=== PATIENT | female | born 1975 | race Caucasian/White ===

== ENCOUNTER 2016-11-23 15:50 | Emergency (ER) | payer MEDICAID ==
[~2016-11-23] VITALS: Ht 154.9 cm; Wt 70.8 kg
[~2016-11-23 15:50] MED LIST: CHOL20001 PO
[2016-11-23 16:17] VITALS: BP 129/79
--- NOTE | 2016-11-23 17:07 | NUR ---
PATIENT TO ER BED 1.
[2016-11-23] MEDS ORDERED: KETOROLAC 60 MG/2 ML VIAL IM ONE (17:10)
[2016-11-23] MEDS ORDERED: ONDANSETRON 4 MG ODT PO ONE (17:10)
[2016-11-23] MEDS ORDERED: CARISOPRODOL 350 MG TAB PO ONE (17:10)
[2016-11-23] MEDS ORDERED: DEXAMETHASONE 10 MG/ML VIAL IM ONE (17:10)
--- NOTE | 2016-11-23 17:10 | NUR ---
Patient being evaluated by physician at bedside.
--- NOTE | 2016-11-23 17:14 | NUR ---
PATIENT PRESENTS TO ED WITH PT C/O RIGHT FLANK PAIN 10/10. DENIES N/V/D; SKIN IS PINK/WARM/DRY; AAOX4 WITH EVEN AND STEADY GAIT; LUNGS CLEAR BL; HR EVEN AND REGULAR; PT DENIES ANY FEVER, CP, SOB, OR COUGH AT THIS TIME; PATIENT STATES PAIN OF 10/10 AT THIS TIME; VSS; PATIENT POSITIONED FOR COMFORT; HOB ELEVATED; BEDRAILS UP X2; BED DOWN. ER MD MADE AWARE OF PT STATUS.
[2016-11-23 18:00] VITALS: BP 122/76
--- NOTE | 2016-11-23 18:00 | NUR ---
Patient discharged with v/s stable. Written and verbal after care instructions given and explained. Patient alert, oriented and verbalized understanding of instructions. Ambulatory with steady gait. All questions addressed prior to discharge. ID band removed. Patient advised to follow up with PMD. Rx of MEDROL DOSE PACK AND MOTRIN AND NORCO 5-325MG given. Patient educated on indication of medication including possible reaction and side effects. Opportunity to ask questions provided and answered.
== END 2016-11-23 18:00 | disposition home or self-care (01) ==
LOC: MED 15:50
DX: M54.41 Lumbago with sciatica, right side (principal); Z88.5 Allergy status to narcotic agent; Z88.6 Allergy status to analgesic agent
CPT/HCPCS: 96372; 99284; J1100; J1885; S0119

== ENCOUNTER 2016-12-10 11:46 | Emergency (ER) | payer MEDICAID ==
[~2016-12-10] VITALS: Ht 154.9 cm; Wt 68.0 kg
[2016-12-10 11:52] VITALS: BP 145/97
--- NOTE | 2016-12-10 11:57 | NUR ---
Patient ambulated to bed 8. RN evaluating patient at bedside.
--- NOTE | 2016-12-10 12:04 | NUR ---
PT PRESENTS TO ER W/C/O LBP THAT RADIATES DOWN RIGHT LEG SINCE THIS AM.PAIN SCALE OF 10/10; HX SCIATICA.PT STATES SHE HAD FEVER LAST NIGHT;TOOK IBUPROFEN BUT DIDN'T HELP PT;PT IS AAOX4;NO ACUTE DISTRESS NOTED AT THIS TIME;DENIES CP/SOB/COUGH/N/V/D.SKIN IS INTACT,WARM AND DRY;HOB ELEVATED;POSITION FOR COMFORT;NEEDS ATTENDED;SAFETY PRECAUTION INSTITUTED;MD MADE AWARE OF PT'S CONDITION.
--- NOTE | 2016-12-10 12:13 | NUR ---
DR MATT AT BEDSIDE
[2016-12-10] MEDS ORDERED: fentaNYL 0.05 MG/ML VIAL IM ONE (12:20)
--- NOTE | 2016-12-10 12:55 | NUR ---
FENTANYL .5ML WAS WASTED AT [facility] WASTE BIN.
--- NOTE | 2016-12-10 13:00 | NUR ---
Patient discharged with v/s stable. Written and verbal after care instructions given and explained. Patient alert, oriented and verbalized understanding of instructions. Ambulatory with steady gait. All questions addressed prior to discharge. ID band removed. Patient advised to follow up with PMD. Rx of MOTRIN AND TRAMADOL given. Patient educated on indication of medication including possible reaction and side effects. Opportunity to ask questions provided and answered.
[2016-12-10 13:03] VITALS: BP 126/87
== END 2016-12-10 13:00 | disposition home or self-care (01) ==
LOC: MED 11:46
PROC: 3E033GC Introduction of Other Therapeutic Substance into Peripheral Vein, Percutaneous Approach (ICD-10-PCS; principal; 2016-12-10)
DX: M54.41 Lumbago with sciatica, right side (principal); R03.0 Elevated blood-pressure reading, without diagnosis of hypertension; Z88.6 Allergy status to analgesic agent
CPT/HCPCS: 96372; 99283; J3010

== ENCOUNTER 2020-12-09 11:35 | Emergency (ER) | payer MEDICAID, OTHER ==
[~2020-12-09] VITALS: Ht 157.5 cm; Wt 59.0 kg
[2020-12-09 11:50] VITALS: BP 135/76
--- NOTE | 2020-12-09 13:19 | NUR ---
Pt ambulated to bed 8.
--- NOTE | 2020-12-09 13:25 | NUR ---
45 Y/O FEMALE BIB SELF C/O BILAT WRIST PAIN X TODAT. PT STATES WHILE AT WORK TODAY, A LARGE AND HEAVY PALLET FELL ON TOP OF HER, SHE ATTEMPTED TO STOP PALLET FROM FALLING WITH HER ARMS BUT IT HIT HER CHEST. LIMITED ROM, RADIAL PULSES PRESENT, SKIN INTACT, NORMAL COLOR, NORMAL TEMP, SENSATION INTACT, <3 SECS CAP REFILL. AO4, BREATHING EVEN AND UNLABORED, SKIN WARM AND DRY. BED IN LOWEST POSITION, LOCKED, X1 SIDERAIL UP. PMHX - DENIED ALLERGIES - ACETAMINOPHEN, NORCO
[2020-12-09] MEDS ORDERED: KETOROLAC 30 MG/ML VIAL IM ONE (13:45)
[2020-12-09] MEDS ORDERED: IBUP-1842 PO (14:35)
--- NOTE | 2020-12-09 14:50 | NUR ---
applied wrist splint to left hand without any issues
[2020-12-09 14:58] VITALS: BP 135/76
--- NOTE | 2020-12-09 14:59 | NUR ---
Patient discharged with v/s stable. Written and verbal after care instructions ABOUT MUSCLE STRAIN AND WRSIT SPRAIN REHAB given and explained. Patient alert, oriented and verbalized understanding of instructions. Ambulatory with steady gait. All questions addressed prior to discharge. ID band removed. Patient advised to follow up with PMD. Rx of IBUPROFEN given. Patient educated on indication of medication including possible reaction and side effects. Opportunity to ask questions provided and answered.
== END 2020-12-09 14:59 | disposition home or self-care (01) ==
LOC: MED 11:35
DX: S20.219A Contusion of unspecified front wall of thorax, initial encounter (principal); S63.501A Unspecified sprain of right wrist, initial encounter; S63.502A Unspecified sprain of left wrist, initial encounter; J45.909 Unspecified asthma, uncomplicated; Z88.5 Allergy status to narcotic agent; Z88.6 Allergy status to analgesic agent; Z79.899 Other long term (current) drug therapy; Z98.890 Other specified postprocedural states; W20.8XXA Other cause of strike by thrown, projected or falling object, initial encounter; Y93.89 Activity, other specified; Y92.89 Other specified places as the place of occurrence of the external cause; Y99.8 Other external cause status
CPT/HCPCS: 29125; 71111; 73110; 96372; 99284; J1885

== ENCOUNTER 2020-12-18 16:36 | Emergency (ER) | payer MEDICAID, OTHER ==
[~2020-12-18] VITALS: Ht 154.9 cm; Wt 72.6 kg
[~2020-12-18 16:36] MED LIST changes: +IBUP-1842 PO
[2020-12-18 16:41] VITALS: BP 145/86
--- NOTE | 2020-12-18 16:59 | NUR ---
To ED bed 02
[2020-12-18] MEDS ORDERED: KETOROLAC 30 MG/ML VIAL ONE (17:04)
[2020-12-18] MEDS ORDERED: KETOROLAC 30 MG/ML VIAL IM ONE (17:05)
--- NOTE | 2020-12-18 17:13 | NUR ---
Dr. Bass with pt for MSE
[2020-12-18] MEDS ORDERED: NAPR-54 PO (17:14)
--- NOTE | 2020-12-18 17:14 | NUR ---
see complete assessment.
--- NOTE | 2020-12-18 17:26 | NUR ---
d/c with VSS. d/c education given. opportunity to ask questions given and answered. rx of naprosyn given
== END 2020-12-18 17:26 | disposition home or self-care (01) ==
LOC: MED 16:36
DX: S46.911A Strain of unspecified muscle, fascia and tendon at shoulder and upper arm level, right arm, initial encounter (principal); R73.03 Prediabetes; J45.909 Unspecified asthma, uncomplicated; W22.8XXA Striking against or struck by other objects, initial encounter; Y93.89 Activity, other specified; Y92.89 Other specified places as the place of occurrence of the external cause; Y99.8 Other external cause status
CPT/HCPCS: 96372; 99283; J1885

== ENCOUNTER 2021-01-04 13:02 | Emergency (ER) | payer MEDICAID ==
[~2021-01-04] VITALS: Ht 154.9 cm; Wt 72.6 kg
[~2021-01-04 13:02] MED LIST changes: +NAPR-54 PO
[2021-01-04 13:12] VITALS: BP 125/93
--- NOTE | 2021-01-04 13:16 | NUR ---
PT TAKEN TO ER LOBBY.
--- NOTE | 2021-01-04 13:29 | NUR ---
Patient ambulated to bed 4. RN evaluating the patient at bedside.
--- NOTE | 2021-01-04 13:36 | NUR ---
45 Y/O FEMALE C/O CHEST PAIN 10/10 DESCRIBES PRESSURE RADIATES TO LEFT SHOULDER. PT STATES SHE HAS BEEN SEEN FOR SIMILAR SYMPTOMS ON PREVIOUS VISITS. PT STATES SHE WAS INJURED 12/07/20 AT WORK AND IS PENDING WORKERS COMP. PT STATES SHE IS HAVING TROUBLE WORKING AND REQUETING WORK NOTE. PT ALSO STATES PAIN TO RLQ 5/10 DESCRIBES BURNING. PT DENIES N/V, DENIES FEVER/CHILLS. PMH: HTN ALLERGIES: NORCO
--- NOTE | 2021-01-04 13:42 | NUR ---
ZOLTAN Dwyer at pt bedside for further evaluation.
[2021-01-04] MEDS ORDERED: KETOROLAC 30 MG/ML VIAL IM ONE (13:50)
[2021-01-04] MEDS ORDERED: TRAM50TA3 PO (13:52)
[2021-01-04 14:15] VITALS: BP 125/93
--- NOTE | 2021-01-04 14:15 | NUR ---
Patient discharged with v/s stable. Written and verbal after care instructions given and explained. Patient alert, oriented and verbalized understanding of instructions. Ambulatory with steady gait. All questions addressed prior to discharge. ID band removed. Patient advised to follow up with PMD. Rx of tramadol 50mg tid po prn pain given. Patient educated on indication of medication including possible reaction and side effects. Opportunity to ask questions provided and answered.
== END 2021-01-04 14:17 | disposition home or self-care (01) ==
LOC: MED 13:02
DX: M25.511 Pain in right shoulder (principal); M25.512 Pain in left shoulder; R07.89 Other chest pain; J45.909 Unspecified asthma, uncomplicated; R73.03 Prediabetes; X58.XXXA Exposure to other specified factors, initial encounter; Y93.89 Activity, other specified; Y92.89 Other specified places as the place of occurrence of the external cause; Y99.8 Other external cause status
CPT/HCPCS: 81002; 81025; 93005; 96372; 99283; J1885

== ENCOUNTER 2021-01-04 19:06 | Emergency (ER) | payer MEDICAID ==
[~2021-01-04] VITALS: Ht 154.9 cm; Wt 77.1 kg
[~2021-01-04 19:06] MED LIST changes: +TRAM50TA3 PO
[2021-01-04 19:24] VITALS: BP 134/87
--- NOTE | 2021-01-04 19:24 | NUR ---
TO BED AMBULATORY
--- NOTE | 2021-01-04 20:24 | NUR ---
PT AMBULATORY TO RESTROOM.
--- NOTE | 2021-01-04 20:38 | NUR ---
PT LEFT WITHOUT BEING SEEN.
--- NOTE | 2021-01-04 20:38 | NUR ---
PATIENT LEFT WITHOUT BEING SEEN BY DR. ANGULO. NO FURTHER CARE PROVIDED FOR PATIENT.
[2021-01-04 20:40] VITALS: BP 134/87
== END 2021-01-04 20:38 | disposition left against medical advice (07) ==
LOC: MED 19:06
DX: Z48.00 Encounter for change or removal of nonsurgical wound dressing (principal); Z53.21 Procedure and treatment not carried out due to patient leaving prior to being seen by health care provider

== ENCOUNTER 2022-03-07 11:21 | Emergency (ER) | payer MEDICAID ==
[~2022-03-07] VITALS: Ht 154.9 cm; Wt 74.8 kg
[~2022-03-07 11:21] MED LIST changes: -CHOL20001 PO; +CHOL200047 PO
[2022-03-07 11:36] VITALS: BP 123/90
--- NOTE | 2022-03-07 11:45 | NUR ---
46YR OLD FEMALE BIB SELF C/O ABD PAIN CARLIN X1 DAY . STATES N/V. PAIN LEVEL 8/10. DENIES CP SOB . PT IS COLOMBIAN SPEAKING ONLY. 22G IV CATH PLACED IN L AC . PT A&OX4. NKDA NO MED HX
[2022-03-07] MEDS ORDERED: ONDANSETRON 4 MG/2 ML VIAL IVP ONE (12:05)
[2022-03-07] MEDS ORDERED: KETOROLAC 15 MG/ML VIAL IVP ONE (12:05)
[2022-03-07 12:34] LABS: BASOPHILS % (AUTO) 0.4 % (0.0-2.0); EOSINOPHILS # (AUTO) 0.1 K/uL (0-0.4); EOSINOPHILS % (AUTO) 1.2 % (0.0-4.0); HEMATOCRIT 41.8 % (36-48); HEMOGLOBIN 13.6 g/dL (12.0-16.0); LYMPHOCYTES % (AUTO) 20.2 % (20.5-51.1); MEAN CORPUSCULAR HEMOGLOBIN 26 pg (27-31); MEAN CORPUSCULAR HGB CONC 33 g/dL (33-37); MEAN CORPUSCULAR VOLUME 81.2 fL (80-94); MONOCYTES # (AUTO) 0.7 K/uL (0.8-1.0); MONOCYTES % (AUTO) 6.9 % (1.7-9.3); NEUTROPHILS # (AUTO) 7.2 K/uL (1.8-7.7); NEUTROPHILS % (AUTO) 71.3 % (42.2-75.2); PLATELET COUNT (AUTO) 342 K/uL (140-450); RED BLOOD CELL COUNT(AUTO) 5.15 MIL/uL (4.20-5.40); RED CELL DISTRIBUTION WIDTH 22.4 % (11.6-13.7); WHITE BLOOD COUNT (AUTO) 10.1 K/uL (4.8-10.8)
--- NOTE | 2022-03-07 12:38 | NUR ---
XRAY AT BEDSIDE
--- NOTE | 2022-03-07 12:39 | NUR ---
22G IV CATH PLACED L AC
[2022-03-07 13:01] LABS: ALBUMIN 3.8 g/dL (3.4-5.0); ANION GAP 10.4 (8-16); CREATININE 0.9 mg/dL (0.6-1.3); POTASSIUM 4.4 mmol/L (3.5-5.1); TOTAL BILIRUBIN 0.5 mg/dL (0.0-1.0)
[2022-03-07] MEDS ORDERED: DEXAMETHASONE 10 MG/ML VIAL IVP ONE (13:25)
[2022-03-07] MEDS ORDERED: METOCLOPRAMIDE 10 MG/2 ML INJ VIAL IVP ONE (13:25)
[2022-03-07] MEDS ORDERED: diphenhydrAMINE 50 MG/ML VIAL IVP ONE (13:25)
[2022-03-07 13:52] LABS: APPEARANCE,URINE CLEAR (CLEAR); BILIRUBIN,URINE NEGATIVE (NEGATIVE); BLOOD, URINE NEGATIVE (NEGATIVE); COLOR,URINE YELLOW (YELLOW); LEUKOCYTE ESTERASE ,URINE NEGATIVE (NEGATIVE); NITRITE, URINE NEGATIVE (NEGATIVE); UGLUCOSE NEGATIVE (NEGATIVE)
[2022-03-07] MEDS ORDERED: ACET-9234 PO (14:13)
[2022-03-07] MEDS ORDERED: FAMO-90 PO (14:14)
[2022-03-07] MEDS ORDERED: BEN10 PO (14:14)
--- NOTE | 2022-03-07 14:15 | NUR ---
IVP MEDS GIVEN-NADR AT THIS TIME
[2022-03-07] MEDS ORDERED: ONDA-188 SL (14:17)
[2022-03-07 15:04] VITALS: BP 106/64
--- NOTE | 2022-03-07 15:04 | NUR ---
Patient discharged with v/s stable. Written and verbal after care instructions given and explained. Patient alert, oriented and verbalized understanding of instructions. Ambulatory with steady gait. All questions addressed prior to discharge. ID band removed. Patient advised to follow up with PMD. Rx of ACETAMINOPHEN BENTYL PEPDID ZOFRAN given. Patient educated on indication of medication including possible reaction and side effects. Opportunity to ask questions provided and answered.
--- NOTE | 2022-03-07 15:05 | NUR ---
Chart checked and completed. The patient's care was reviewed and supervised by Hortensia Pereyra RN.
== END 2022-03-07 15:04 | disposition home or self-care (01) ==
LOC: MED 11:21
DX: A08.4 Viral intestinal infection, unspecified (principal); I10 Essential (primary) hypertension; G43.909 Migraine, unspecified, not intractable, without status migrainosus; J45.909 Unspecified asthma, uncomplicated; E11.9 Type 2 diabetes mellitus without complications; Z90.710 Acquired absence of both cervix and uterus; Z98.890 Other specified postprocedural states; Z79.899 Other long term (current) drug therapy; Z79.891 Long term (current) use of opiate analgesic; Z79.1 Long term (current) use of non-steroidal anti-inflammatories (NSAID); Z88.5 Allergy status to narcotic agent; Z88.8 Allergy status to other drugs, medicaments and biological substances
CPT/HCPCS: 36415; 71045; 80053; 81003; 81025; 83690; 84484; 85025; 93005; 96374; 96375; 99285; J1100; J1200; J1885; J2405; J2765; Q0092

== ENCOUNTER 2022-06-06 19:59 | Emergency (ER) | payer MEDICAID ==
[~2022-06-06] VITALS: Ht 154.9 cm; Wt 76.2 kg
[~2022-06-06 19:59] MED LIST changes: +ACET-9234 PO; +BEN10 PO; +FAMO-90 PO; +ONDA-188 SL
[2022-06-06 20:29] VITALS: BP 122/76
--- NOTE | 2022-06-06 21:48 | NUR ---
Patient ambulated to bed 8.
--- NOTE | 2022-06-06 22:00 | NUR ---
46/F BIB SELF C/C RIGHT ARM TO MIDBACK PAIN X1DAY. PER PATIENT PAIN IS 8/10 AND FEELS LIKE "PRESSURE". +NUMBNESS AND TINGLING ON LIPS AND TONGUE XTODAY AM. PATIENT REPORTS SHE IS CURRENTLY SEEING NEURO DUE C/O HEADACHE AND BLURRY VISION, NEXT APPT JUL. . PATIENT IS AAOX4 AND AMBULATORY. DENIES SOB/CP/N/V/D/C AT THIS TIME. PATIENT PLACED IN BED AND MONITOR. GUARDING ARM. 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
--- NOTE | 2022-06-06 22:14 | NUR ---
Patient being evaluated by physician at bedside.
[2022-06-06] MEDS ORDERED: IBUPROFEN 600 MG TAB PO ONE (22:25)
[2022-06-06] MEDS ORDERED: LIDOCAINE 5% 1 EA PATCH TP SCH (22:25)
--- NOTE | 2022-06-06 22:42 | NUR ---
PATIENT MEDICATED PER ORDERS. TOLERATED WELL.
--- NOTE | 2022-06-07 | NUR ---
ERIC DENIES PAIN AT THIS TIME. 0. STATED THAT THE PATCH AND MED TOOK PAIN AWAY
[2022-06-07] MEDS ORDERED: LID5T TP (00:10)
[2022-06-07 00:30] VITALS: BP 122/76
--- NOTE | 2022-06-07 00:30 | NUR ---
Chart checked and completed.
--- NOTE | 2022-06-07 00:30 | NUR ---
Patient discharged with v/s stable. Written and verbal after care instructions given PARESTHESIA and explained. Patient alert, oriented and verbalized understanding of instructions. Ambulatory with steady gait. All questions addressed prior to discharge. ID band removed. Patient advised to follow up with PMD. Rx of LIDOCAINE HYD PATCH given.
== END 2022-06-07 00:30 | disposition home or self-care (01) ==
LOC: MED 19:59
DX: S46.911A Strain of unspecified muscle, fascia and tendon at shoulder and upper arm level, right arm, initial encounter (principal); R20.2 Paresthesia of skin; J45.909 Unspecified asthma, uncomplicated; I10 Essential (primary) hypertension; E11.9 Type 2 diabetes mellitus without complications; Z79.899 Other long term (current) drug therapy; Z79.1 Long term (current) use of non-steroidal anti-inflammatories (NSAID); Z79.891 Long term (current) use of opiate analgesic; Z88.5 Allergy status to narcotic agent; Z88.8 Allergy status to other drugs, medicaments and biological substances; X58.XXXA Exposure to other specified factors, initial encounter; Y92.89 Other specified places as the place of occurrence of the external cause; Y93.89 Activity, other specified; Y99.8 Other external cause status
CPT/HCPCS: 93005; 99283

== ENCOUNTER 2022-10-01 10:40 | Emergency (ER) | payer MEDICAID ==
[~2022-10-01] VITALS: Ht 152.4 cm; Wt 71.2 kg
[~2022-10-01 10:40] MED LIST changes: +LID5T TP
[2022-10-01 10:49] VITALS: BP 127/92
--- NOTE | 2022-10-01 10:51 | NUR ---
47/F WALKED IN C/O RIGHT SIDED BACK PAIN RADIATING TO RIGHT SHOULDER ONSET TODAY. DENIES ANY FALL OR INJURY. REPORTS CONSTANT 8/10 PAIN. DENIES ANY MED. AAO4, AMBULATORY, VITALS STABLE, NO ACUTE DISTRESS NOTED PMH: DENIES
--- NOTE | 2022-10-01 10:51 | NUR ---
PT AMBULATED TO LOBBY
[2022-10-01] MEDS ORDERED: KETOROLAC 30 MG/ML VIAL IM ONE (11:55)
[2022-10-01] MEDS ORDERED: AMOX-1230 PO (13:17)
[2022-10-01] MEDS ORDERED: NAPR-1704 PO (13:17)
[2022-10-01 14:00] VITALS: BP 131/89
[2022-10-01 14:50] LABS: APPEARANCE,URINE CLEAR (CLEAR); BILIRUBIN,URINE NEGATIVE (NEGATIVE); BLOOD, URINE 1+ (NEGATIVE); COLOR,URINE YELLOW (YELLOW); LEUKOCYTE ESTERASE ,URINE NEGATIVE (NEGATIVE); NITRITE, URINE NEGATIVE (NEGATIVE); UGLUCOSE NEGATIVE (NEGATIVE)
[2022-10-01] MEDS ORDERED: LID5T TP (15:17)
[2022-10-01 15:43] LABS: TRICHOMONAS,URINE None Seen /HPF (None Seen); WBC,URINE 0-5 /HPF (0-5); YEAST,URINE None Seen /HPF (None Seen)
== END 2022-10-01 15:30 | disposition home or self-care (01) ==
LOC: MED 10:40
DX: M62.830 Muscle spasm of back (principal); J45.909 Unspecified asthma, uncomplicated; I10 Essential (primary) hypertension; Z88.5 Allergy status to narcotic agent; Z88.6 Allergy status to analgesic agent; Z79.899 Other long term (current) drug therapy
CPT/HCPCS: 71045; 81001; 96372; 99284; J1885

== ENCOUNTER 2022-10-26 15:17 | Emergency (ER) | payer MEDICAID ==
[~2022-10-26] VITALS: Ht 154.9 cm; Wt 77.6 kg
[~2022-10-26 15:17] MED LIST changes: +NAPR-1704 PO
[2022-10-26 15:38] VITALS: BP 150/95
--- NOTE | 2022-10-26 15:50 | NUR ---
47/F PRESENTS TO ED WITH C/O POSSIBLE ALLERGIC REACTION PRIMARILY TO FACE X1 WEEK. STATES REDNESS AND SWELLING BUT UNSURE OF TRIGGER, TOOK OTC ALLERGY MEDS WITH NO RELIEF. DENIES SOB, CP, SPEAKING IN FULL CLEAR SENTENCE, REDNESS NOTED AROUND MOUTH AREA.
[2022-10-26] MEDS ORDERED: CEPH-588 PO (16:12)
[2022-10-26] MEDS ORDERED: HYD1C TP (16:12)
--- NOTE | 2022-10-26 16:16 | NUR ---
Patient discharged with v/s stable. Written and verbal after care instructions ABOUT RASH, CELLULITIS given and explained. Patient alert, oriented and verbalized understanding of instructions. Ambulatory with steady gait. All questions addressed prior to discharge. ID band removed. Patient advised to follow up with PMD. Rx of KEFLEX AND HYDROCORTISONE given. Patient educated on indication of medication including possible reaction and side effects. Opportunity to ask questions provided and answered.
== END 2022-10-26 16:16 | disposition home or self-care (01) ==
LOC: MED 15:17
DX: L30.9 Dermatitis, unspecified (principal); J45.909 Unspecified asthma, uncomplicated; I10 Essential (primary) hypertension; Z79.899 Other long term (current) drug therapy; Z88.5 Allergy status to narcotic agent
CPT/HCPCS: 99283

== ENCOUNTER 2022-11-30 14:53 | Emergency (ER) | payer MEDICAID ==
[~2022-11-30] VITALS: Ht 152.4 cm; Wt 75.7 kg
[~2022-11-30 14:53] MED LIST changes: +CEPH-588 PO; +HYD1C TP
[2022-11-30 15:48] VITALS: BP 126/65
[2022-11-30] MEDS ORDERED: PROM118S5 PO (16:27)
[2022-11-30] MEDS ORDERED: LIDO15SO PO (16:27)
[2022-11-30] MEDS ORDERED: IBUP-2213 PO (16:27)
--- NOTE | 2022-11-30 17:05 | NUR ---
Patient discharged with v/s stable. Written and verbal after care instructions given. Patient alert, oriented and verbalized understanding of instructions. Ambulatory with steady gait. All questions addressed prior to discharge. ID band removed. Patient advised to follow up with PMD. Rx of IBUPROFEN, LIDOCAINE AND PROMETHAZINE-DM SYRUP given. Opportunity to ask questions provided and answered. WORK NOTE HANDED TO PATIENT.
--- NOTE | 2022-11-30 17:06 | NUR ---
The patient's care was reviewed and supervised by Karon Mcintosh, RN, RN.
== END 2022-11-30 17:05 | disposition home or self-care (01) ==
LOC: MED 14:53
DX: J04.0 Acute laryngitis (principal); J45.909 Unspecified asthma, uncomplicated; E11.9 Type 2 diabetes mellitus without complications; I10 Essential (primary) hypertension; Z79.899 Other long term (current) drug therapy; Z79.1 Long term (current) use of non-steroidal anti-inflammatories (NSAID); Z79.2 Long term (current) use of antibiotics; Z88.5 Allergy status to narcotic agent; Z88.6 Allergy status to analgesic agent
CPT/HCPCS: 99283

== ENCOUNTER 2023-10-20 10:42 | Emergency (ER) | payer MEDICAID ==
[~2023-10-20] VITALS: Ht 154.9 cm; Wt 73.9 kg
[~2023-10-20 10:42] MED LIST changes: +IBUP-2213 PO; +LIDO15SO4 PO; +PROM118S5 PO
[2023-10-20 11:19] VITALS: BP 126/96; PULSE 75; RESP 16; TEMP 98.5; O2SAT 99
[2023-10-20 11:49] VITALS: O2SAT 99
[2023-10-20 12:39] LABS: BASOPHILS # (AUTO) 0.1 K/uL (0.00-0.22); BASOPHILS % (AUTO) 0.6 % (0.0-2.0); EOSINOPHILS # (AUTO) 0.1 K/uL (0-0.4); EOSINOPHILS % (AUTO) 1.5 % (0.0-4.0); HEMATOCRIT 45.3 % (36-48); HEMOGLOBIN 15.7 g/dL (12.0-16.0); LYMPHOCYTES % (AUTO) 23.9 % (20.5-51.1); MEAN CORPUSCULAR HEMOGLOBIN 34 pg (27-31); MEAN CORPUSCULAR HGB CONC 35 g/dL (33-37); MEAN CORPUSCULAR VOLUME 96.7 fL (80-94); MONOCYTES # (AUTO) 0.6 K/uL (0.8-1.0); MONOCYTES % (AUTO) 6.6 % (1.7-9.3); NEUTROPHILS # (AUTO) 5.7 K/uL (1.8-7.7); NEUTROPHILS % (AUTO) 67.4 % (42.2-75.2); PLATELET COUNT (AUTO) 317 K/uL (140-450); RED BLOOD CELL COUNT(AUTO) 4.68 MIL/uL (4.20-5.40); RED CELL DISTRIBUTION WIDTH 13.3 % (11.6-13.7); WHITE BLOOD COUNT (AUTO) 8.5 K/uL (4.8-10.8)
[2023-10-20 13:16] LABS: APPEARANCE,URINE CLEAR (CLEAR); BILIRUBIN,URINE NEGATIVE (NEGATIVE); BLOOD, URINE NEGATIVE (NEGATIVE); COLOR,URINE YELLOW (YELLOW); LEUKOCYTE ESTERASE ,URINE NEGATIVE (NEGATIVE); NITRITE, URINE NEGATIVE (NEGATIVE); PH,URINE 8.5 (5.0-9.0); PROTEIN,URINE NEGATIVE (NEGATIVE); UGLUCOSE NEGATIVE (NEGATIVE); UROBILINOGEN,URINE 0.2 EU/dL (0.2 - 1)
[2023-10-20 13:17] LABS: ANION GAP 12.8 (8-16); CALCIUM 9.2 mg/dL (8.5-10.1); CARBON DIOXIDE 25.6 mmol/L (21-32); CREATININE 0.8 mg/dL (0.6-1.3); POTASSIUM 4.4 mmol/L (3.5-5.1)
[2023-10-20 13:20] LABS: ALBUMIN 3.7 g/dL (3.4-5.0); BILIRUBIN,DIRECT 0.1 mg/dL (0.0-0.3); TOTAL BILIRUBIN 0.3 mg/dL (0.0-1.0); TOTAL PROTEIN, SERUM 8.6 g/dL (6.4-8.2)
[2023-10-20] MEDS: KETOROLAC 30 MG/ML VIAL IM ONE (13:51)
[2023-10-20] MEDS: ACETAMINOPHEN 325 MG TAB PO ONE (13:52)
[2023-10-20] MEDS ORDERED: IBUP-2213 PO (14:16)
[2023-10-20] MEDS ORDERED: LID5T TP (14:16)
== END 2023-10-20 14:42 | disposition home or self-care (01) ==
LOC: MED 10:42
DX: R10.9 Unspecified abdominal pain (principal); J45.909 Unspecified asthma, uncomplicated; I10 Essential (primary) hypertension; Z88.5 Allergy status to narcotic agent; Z88.8 Allergy status to other drugs, medicaments and biological substances; Z79.899 Other long term (current) drug therapy
CPT/HCPCS: 36415; 74176; 80048; 80076; 81003; 81025; 83690; 85025; 96372; 99285; J1885

== ENCOUNTER 2023-11-28 10:31 | Emergency (ER) | payer MEDICAID ==
[~2023-11-28] VITALS: Ht 154.9 cm; Wt 74.4 kg
[2023-11-28 10:36] VITALS: BP 150/93; PULSE 102; RESP 18; TEMP 97; O2SAT 97
[2023-11-28 11:25] LABS: APPEARANCE,URINE CLEAR (CLEAR); BILIRUBIN,URINE NEGATIVE (NEGATIVE); BLOOD, URINE NEGATIVE (NEGATIVE); COLOR,URINE YELLOW (YELLOW); LEUKOCYTE ESTERASE ,URINE NEGATIVE (NEGATIVE); NITRITE, URINE NEGATIVE (NEGATIVE); PROTEIN,URINE NEGATIVE (NEGATIVE); UGLUCOSE NEGATIVE (NEGATIVE); UROBILINOGEN,URINE 0.2 EU/dL (0.2 - 1)
[2023-11-28] MEDS ORDERED: NAPR-1704 PO (11:33)
[2023-11-28] MEDS ORDERED: NITR100C7 PO (11:33)
[2023-11-28 11:44] VITALS: BP 135/82; PULSE 88; RESP 16; TEMP 97; O2SAT 99
== END 2023-11-28 11:44 | disposition home or self-care (01) ==
LOC: MED 10:31
DX: N39.0 Urinary tract infection, site not specified (principal); J45.909 Unspecified asthma, uncomplicated; E11.9 Type 2 diabetes mellitus without complications; I10 Essential (primary) hypertension; Z90.710 Acquired absence of both cervix and uterus; Z98.890 Other specified postprocedural states; Z79.899 Other long term (current) drug therapy; Z88.5 Allergy status to narcotic agent; Z88.8 Allergy status to other drugs, medicaments and biological substances
CPT/HCPCS: 81003; 81025; 87086; 87491; 99283